=== PATIENT | female | born 1985 | race Caucasian/White ===

== ENCOUNTER 2017-07-04 08:15 | Emergency (ER) | payer OTHER ==
[~2017-07-04] VITALS: Ht 167.6 cm; Wt 106.9 kg
[~2017-07-04 08:15] MED LIST: AMLODIPINE BESYL5 MG PO; CELEXA10 MG PO; CHROMAGEN,1 CAPSULE PO; HYDROCHLOROTH12.5 M3 PO; LOSARTAN-HCTZ1 EAC1 PO; Motrin PO; NATALCARE RX1 TABLE1 PO; NOHOMEMEDS; PRINIVIL20 MG PO; PROTONIX20 MG PO; VALIUM10 MG PO; XANAX0.5 MG PO; ZOFRAN ODT4 MG PO
[2017-07-04] MEDS ORDERED: ATORVASTATIN CA80 MG PO (08:40)
[2017-07-04 09:03] LABS: ADD MIUA? YES; BILIRUBIN NEGATIVE; BLOOD MODERATE; COLOR YELLOW ((YELLOW)); GLUCOSE (STRIP) NEGATIVE; KETONES NEGATIVE; LEUKOCYTES NEGATIVE; NITRITE NEGATIVE; PROTEIN (STRIP) 30; SPECIFIC GRAVITY 1.025 (1.000-1.030); UROBILINOGEN 0.2 MG/DL (0.2-1.0)
[2017-07-04 09:12] LABS: BACTERIA 1+ /HPF; EPITHELIAL CELLS 3+ /HPF; MUCUS 1+ /LPF; RED BLOOD CELLS 0-5 /HPF (0-5); UCUL ADDED? NO; WHITE BLOOD CELLS 0-5 /HPF (0-5)
[2017-07-04 09:18] LABS: BASOPHIL COUNT 0.1 K/uL (0-0.1); EOSINOPHIL (%) 1.8 % (0-5); EOSINOPHIL COUNT 0.1 K/uL (0-0.3); IMMATURE GRANULOCYTE (%) 0.5 % (0.0-0.7); INSTRUMENT ABS NEUTROPHIL CT 5.6 K/uL; LYMPHOCYTE COUNT 1.2 K/uL (1.0-2.8); MCH 32.2 PG (29.0-34.0); MCHC 33.8 G/DL (30.0-36.0); MCV 95.1 FL (83-99); MONOCYTE COUNT 0.4 K/uL (0-0.8); NEUTROPHIL (%) 75.3 % (45-76); NEUTROPHIL COUNT 5.6 K/uL (1.8-6.4); RBC DIS.WIDTH-CV 13.2 % (11.8-14.6); RBC DIS.WIDTH-SD 46.2 % (39-53); WHITE BLOOD COUNT 7.4 K/uL (4.1-10.2)
[2017-07-04 09:27] LABS: CHLORIDE 105 mEq/L (99-109); POTASSIUM 3.1 mEq/L (3.7-5.4); SODIUM 136 mEq/L (136-147)
[2017-07-04 09:29] LABS: GLUCOSE 91 mg/dL (70-99)
[2017-07-04 09:30] LABS: ANION GAP 10 MEQ/L (2-14)
[2017-07-04 09:31] LABS: TOTAL BILIRUBIN 0.3 mg/dL (0.0-1.0)
[2017-07-04 09:32] LABS: ALKALINE PHOSPHATASE 91 IU/L (3-129)
[2017-07-04 09:33] LABS: GFR ESTIMATE (CALCULATED) > 59 mL/min/
[2017-07-04 09:34] LABS: UREA NITROGEN (BUN) 6 mg/dL (9-23)
[2017-07-04 09:41] LABS: QUANTITATIVE HCG 390.3 MIU/ML
[2017-07-04 10:08] LABS: HEMATOLOGY COMMENT 1 SMEAR COMPATIBLE; MEAN PLAT.VOLUME 10.6 uM^3 (9.5-12.4); PLAT.SUFFICIENCY DECREASED; PLATELET COUNT 100 K/uL (156-360)
[2017-07-04 13:19] VITALS: BP 186/117
== END 2017-07-04 13:24 | disposition home or self-care (01) ==
LOC: EME 08:15
PROVIDERS: Physician Assistant
DX: O20.0 Threatened abortion (principal); O99.511 Diseases of the respiratory system complicating pregnancy, first trimester; J45.909 Unspecified asthma, uncomplicated; O16.1 Unspecified maternal hypertension, first trimester; O34.81 Maternal care for other abnormalities of pelvic organs, first trimester; N83.201 Unspecified ovarian cyst, right side; O99.341 Other mental disorders complicating pregnancy, first trimester; F41.9 Anxiety disorder, unspecified; O99.331 Smoking (tobacco) complicating pregnancy, first trimester; F17.200 Nicotine dependence, unspecified, uncomplicated; Z3A.01 Less than 8 weeks gestation of pregnancy
CPT/HCPCS: 76856; 80053; 81003; 84702; 85025; 99281; 99284

== ENCOUNTER 2017-07-11 09:19 | Emergency (ER) | payer OTHER ==
[~2017-07-11] VITALS: Ht 167.6 cm; Wt 107.1 kg
[~2017-07-11 09:19] MED LIST changes: +ATORVASTATIN CA80 MG PO
[2017-07-11 11:25] LABS: CHLORIDE 106 mEq/L (99-109); POTASSIUM 3.5 mEq/L (3.7-5.4); SODIUM 140 mEq/L (136-147)
[2017-07-11 11:26] LABS: GLUCOSE 93 mg/dL (70-99)
[2017-07-11 11:28] LABS: ANION GAP 11 MEQ/L (2-14); HEMATOCRIT 38.9 % (36.0-46.0); MCH 31.5 PG (29.0-34.0); MCHC 33.4 G/DL (30.0-36.0); MCV 94.2 FL (83-99); MEAN PLAT.VOLUME 9.2 uM^3 (9.5-12.4); RBC DIS.WIDTH-SD 44.8 % (39-53); RED BLOOD COUNT 4.13 M/uL (3.80-5.20); WHITE BLOOD COUNT 4.5 K/uL (4.1-10.2)
[2017-07-11 11:29] LABS: PLATELET COUNT 230 K/uL (156-360)
[2017-07-11 11:30] LABS: GFR ESTIMATE (CALCULATED) > 59 mL/min/
[2017-07-11 11:31] LABS: UREA NITROGEN (BUN) 10 mg/dL (9-23)
[2017-07-11 11:41] LABS: QUANTITATIVE HCG 8.7 MIU/ML
[2017-07-11 13:09] VITALS: BP 133/98
== END 2017-07-11 13:09 | disposition home or self-care (01) ==
LOC: EME → EDBD 09:21 → EME 09:21
PROVIDERS: Emergency Medicine
DX: O03.9 Complete or unspecified spontaneous abortion without complication (principal); Z3A.01 Less than 8 weeks gestation of pregnancy; E86.0 Dehydration; E78.5 Hyperlipidemia, unspecified; F17.200 Nicotine dependence, unspecified, uncomplicated
CPT/HCPCS: 80048; 84702; 85027; 99281; 99285; J1885; J2405; J7030

== ENCOUNTER 2017-12-23 05:56 | Emergency (ER) | payer OTHER ==
[~2017-12-23] VITALS: Ht 170.2 cm; Wt 107.7 kg
[2017-12-23 07:04] LABS: BASOPHIL (%) 0.9 % (0-1); BASOPHIL COUNT 0.1 K/uL (0-0.1); EOSINOPHIL COUNT 0.1 K/uL (0-0.3); HEMATOCRIT 40.8 % (36.0-46.0); HEMOGLOBIN 14.3 G/DL (11.9-15.5); IMMATURE GRANULOCYTE (%) 0.2 % (0.0-0.7); LYMPHOCYTE (%) 15.6 % (15-42); LYMPHOCYTE COUNT 1.4 K/uL (1.0-2.8); MCH 35.7 PG (29.0-34.0); MCV 101.7 FL (83-99); MONOCYTE (%) 5.6 % (3-12); MONOCYTE COUNT 0.5 K/uL (0-0.8); NEUTROPHIL (%) 76.7 % (45-76); NEUTROPHIL COUNT 6.8 K/uL (1.8-6.4); PLATELET COUNT 267 K/uL (156-360); RBC DIS.WIDTH-CV 14.6 % (11.8-14.6); RBC DIS.WIDTH-SD 54.5 % (39-53); RED BLOOD COUNT 4.01 M/uL (3.80-5.20); WHITE BLOOD COUNT 8.9 K/uL (4.1-10.2)
[2017-12-23 07:27] LABS: CHLORIDE 105 mEq/L (99-109); POTASSIUM 3.9 mEq/L (3.7-5.4); SODIUM 138 mEq/L (136-147)
[2017-12-23 07:28] LABS: GLUCOSE 106 mg/dL (70-99)
[2017-12-23 07:32] LABS: CREATININE 0.9 mg/dL (0.6-1.3); GFR ESTIMATE (CALCULATED) > 59 mL/min/
[2017-12-23 07:33] LABS: UREA NITROGEN (BUN) 7 mg/dL (9-23)
[2017-12-23] MEDS ORDERED: NORVASC5 MG PO (08:33)
[2017-12-23] MEDS ORDERED: ZOFRAN4 MG PO (08:33)
[2017-12-23] MEDS ORDERED: HYZAAR 100-21 TABLET PO (08:33)
[2017-12-23 09:43] VITALS: BP 131/110
== END 2017-12-23 09:44 | disposition home or self-care (01) ==
LOC: EME → EDBD 05:56 → EME 05:56
PROVIDERS: Emergency Medicine
DX: J40 Bronchitis, not specified as acute or chronic (principal); I10 Essential (primary) hypertension; F41.9 Anxiety disorder, unspecified; T46.5X6A Underdosing of other antihypertensive drugs, initial encounter; Z91.128 Patient's intentional underdosing of medication regimen for other reason; E78.5 Hyperlipidemia, unspecified; Z88.2 Allergy status to sulfonamides; Z88.8 Allergy status to other drugs, medicaments and biological substances
CPT/HCPCS: 71045; 80048; 85025; 93005; 99281; 99285; J2405

== ENCOUNTER 2018-01-26 02:59 | Inpatient (IN) | payer OTHER ==
[~2018-01-26] VITALS: Ht 170.2 cm; Wt 102.0 kg
[~2018-01-26 02:59] MED LIST changes: +HYZAAR 100-21 TABLET PO; +NORVASC5 MG PO; +ZOFRAN4 MG PO
[2018-01-26 03:24] LABS: HEMATOCRIT 42.1 % (36.0-46.0); MCH 35.9 PG (29.0-34.0); MCHC 35.6 G/DL (30.0-36.0); MCV 100.7 FL (83-99); PLATELET COUNT 280 K/uL (156-360); RBC DIS.WIDTH-CV 13.2 % (11.8-14.6); RBC DIS.WIDTH-SD 49.6 % (39-53); RED BLOOD COUNT 4.18 M/uL (3.80-5.20); WHITE BLOOD COUNT 9.7 K/uL (4.1-10.2)
[2018-01-26 03:33] LABS: CHLORIDE 101 mEq/L (99-109); POTASSIUM 3.2 mEq/L (3.7-5.4); SODIUM 139 mEq/L (136-147)
[2018-01-26 03:34] LABS: GLUCOSE 127 mg/dL (70-99)
[2018-01-26 03:38] LABS: CREATININE 1.1 mg/dL (0.6-1.3); GFR ESTIMATE (CALCULATED) > 59 mL/min/
[2018-01-26 03:39] LABS: UREA NITROGEN (BUN) 6 mg/dL (9-23)
[2018-01-26 04:13] LABS: TROP-I INTERPRETATION NEGATIVE; TROPONIN-I < 0.01 ng/mL (0.0-0.30)
[2018-01-26 04:37] LABS: ALBUMIN 4.4 g/dL (3.2-4.8)
[2018-01-26 04:39] LABS: TOTAL PROTEIN 8.2 g/dL (6.4-8.3)
[2018-01-26 04:41] LABS: TOTAL BILIRUBIN 0.6 mg/dL (0.0-1.0)
[2018-01-26 04:42] LABS: ALKALINE PHOSPHATASE 152 IU/L (3-129); SERUM ETHYL ALCOHOL 10 mg/dL
[2018-01-26 04:45] LABS: ALT (GPT) 90 IU/L (3-49); AST (GOT) 59 IU/L (2-34); DIRECT BILIRUBIN 0.3 mg/dL (0.0-0.3)
[2018-01-26 04:52] LABS: QUANTITATIVE HCG < 4.0 MIU/ML
[2018-01-26] MEDS ORDERED: INDERAL40 MG PO (05:36)
[2018-01-26] MEDS ORDERED: FIORICET 50-301 EAC1 PO (05:36)
[2018-01-26 06:07] VITALS: BP 129/93
[2018-01-26 07:55] VITALS: BP 128/81
[2018-01-26 08:00] LABS: MAGNESIUM 1.6 mg/dL (1.3-2.7)
[2018-01-26] MEDS ORDERED: HYZAAR 100-21 TABLET PO (12:06)
[2018-01-26] MEDS ORDERED: NORVASC5 MG PO (12:06)
[2018-01-26] MEDS ORDERED: TYLENOL PM EX-1 EACH PO (12:07)
[2018-01-26] MEDS ORDERED: IBUPROFEN PM C1 EACH PO (12:07)
[2018-01-26] MEDS ORDERED: CLARITIN,ALAVAR10 MG PO (12:07)
[2018-01-26 15:58] VITALS: BP 126/65
[2018-01-26] MEDS ORDERED: LIBRIUM25 MG PO (17:43)
== END 2018-01-26 18:08 | disposition left against medical advice (07) | DRG 894 ==
LOC: EME 02:59 → EDOF 04:55 → ENRESERV 05:10 → 5EAST 05:57
DX: F10.239 Alcohol dependence with withdrawal, unspecified (principal); I10 Essential (primary) hypertension; E78.5 Hyperlipidemia, unspecified; E55.9 Vitamin D deficiency, unspecified; F17.200 Nicotine dependence, unspecified, uncomplicated; F32.9 Major depressive disorder, single episode, unspecified; F41.9 Anxiety disorder, unspecified; G43.909 Migraine, unspecified, not intractable, without status migrainosus; Z88.2 Allergy status to sulfonamides; Z23 Encounter for immunization
CPT/HCPCS: 80048; 80076; 81003; 82306; 83735; 84484; 84702; 85027; 90686; 93005; 99281; 99285; G0480; J2060; J2405; J3411; J7030; S0028